=== PATIENT | female | born 1955 | race Caucasian/White ===

== ENCOUNTER 2016-07-30 15:22 | Emergency (ER) | payer OTHER ==
[~2016-07-30] VITALS: Ht 154.9 cm; Wt 60.0 kg
[~2016-07-30 15:22] MED LIST: ANAS1 PO; ASPI81 PO; ATOR40TA49 PO; CARB200T16 PO; ERGO50000 PO; GABA100C4 PO; GLUC10TA3 PO; HCTZ50 PO; KRIL300C PO; LANTUSP SQ; LISI-366 PO; METF-324 PO; NOVOLOGP2 SQ; PRED20 PO; PROT40TA PO; RANI150T PO; SERT100 PO; TRAZ150T2 PO; TRIL135C PO; WELL150T PO
[2016-07-30 15:28] VITALS: BP 138/90; PULSE 92; RESP 18; TEMP 98.8; O2SAT 95
[2016-07-30] MEDS ORDERED: SODIUM CHLOR 0.9% 1000 ML INJ 1,000 ML IV SCH (15:32)
[2016-07-30] MEDS ORDERED: SODIUM CHLORIDE 0.9% FLUSH 10 ML FLUSH IV FLUSH PRN (15:45)
[2016-07-30] MEDS ORDERED: DAPA1TAB PO (15:55)
[2016-07-30] MEDS ORDERED: PROT40TA PO (15:55)
[2016-07-30] MEDS ORDERED: TRAZ100T6 PO (15:55)
[2016-07-30] MEDS ORDERED: HYDR25TA5 PO (15:55)
[2016-07-30] MEDS ORDERED: SERT-129 PO (15:55)
[2016-07-30] MEDS ORDERED: GLIP10TA6 PO (15:55)
[2016-07-30] MEDS ORDERED: LIPI40TA PO (15:55)
[2016-07-30] MEDS ORDERED: LANTUS2P SQ (15:55)
[2016-07-30] MEDS ORDERED: METF1000 PO (15:55)
[2016-07-30] MEDS ORDERED: ASPI81CH CHEW (15:55)
[2016-07-30] MEDS ORDERED: LISI40TA PO (15:55)
[2016-07-30] MEDS ORDERED: FENO145T2 PO (15:55)
[2016-07-30] MEDS ORDERED: BUPR150T3 PO (15:55)
[2016-07-30] MEDS ORDERED: NOVOLOGP2 SQ (15:55)
[2016-07-30] MEDS ORDERED: VITA20003 PO (15:55)
[2016-07-30] MEDS ORDERED: CARB200T PO (15:55)
[2016-07-30] MEDS ORDERED: GABA100C4 PO ×2 (15:55)
[2016-07-30 16:02] LABS: BLOOD, URINE NEG (NEG); KETONE, URINE NEG (NEG); NITRITE,URINE NEG (NEG)
--- NOTE | 2016-07-30 16:06 | PD ---
HPI Chief Complaint: Abdominal Pain Time Seen by Provider: 16:06 Travel History International Travel<30 days: No Contact w/Intl Traveler<30days: No Traveled to known affect area: No History of Present Illness HPI Patient's 60-year-old female with a history of diverticulitis and diabetes presents the emergency department with a week's worth of abdominal pain. She's been seeing her primary care physician Dr. Carter initially started with right lower quadrant pain became left lower quadrant pain associated with some nausea and nonbilious nonbloody vomiting. She's also endorsing some nonbloody nonbilious stools. She also endorses a fever to low 102. She has been talking with Dr. Carter who recommended that she come up here for further evaluation emergency Department at this point. Patient states initially the pain felt like her diverticulitis but in the wrong quadrant and now feels much more likely diverticulitis but periumbilical pain is unusual for her. She denies any chest pain shortness of breath extremity pain or abdominal trauma. No previous abdominal surgeries. PFSH Past Medical History Arthritis: Yes Depression: Yes Cancer: Yes (LEFT breast) Cardiovascular Problems: No High Cholesterol: Yes Chemotherapy: No Diabetes: Yes Patient Takes Glucophage: Yes Diminished Hearing: No Diverticulitis: Yes Gastrointestinal Disorders: Yes GERD: Yes Glaucoma: No Genitourinary: Yes (URINARY URETHRA RECONSTRUCTION AGE 3) Hepatitis: No Hiatal Hernia: No Hypertension: Yes Immune Disorder: No Medical other: Yes (arthritis, GERD) Musculoskeletal: Yes (torn meniscus) Psychiatric: No Reproductive: No Respiratory: No Immunizations Current: Yes Radiation Therapy: Yes (MITCH TREATMENT) Thyroid Disease: No Triglycerides - High: Yes Tetanus Vaccination: > 5 Years Influenza Vaccination: Yes ?: Not Menopausal: Yes Past Surgical History Genitourinary Surgery: Yes (URETHRAL DIVERSION (TO VAGINA)) Gynecologic Surgery: Yes Oral Surgery: Yes Pacemaker: No Tonsillectomy: Yes Other Surgery: Yes (breast ca ) Social History Alcohol Use: No Tobacco Use: Yes (1 ppd) Substance Use: No Allergies-Medications (Allergen,Severity, Reaction): Coded Allergies: Adhesives (Unverified Allergy, Severe, RASH, 07/30/16) Sulfa (Verified Allergy, Severe, Nausea/Vomiting, 07/30/16) GI UPSET Reported Meds & Prescriptions Reported Meds & Active Scripts Active Zofran Odt (Ondansetron Odt) 4 Mg Tab 4 Mg SL Q6HR PRN Flagyl (Metronidazole) 500 Mg Tab 500 Mg PO BID 7 Days Cipro (Ciprofloxacin HCl) 500 Mg Tab 500 Mg PO BID 7 Days Bentyl (Dicyclomine HCl) 10 Mg Cap 10 Mg PO TID Reported Vitamin D (Cholecalciferol) 2,000 Unit Tab 50,000 Mg PO 1-2XWEEK Trazodone (Trazodone HCl) 100 Mg Tablet 175 Mg PO HS Sertraline (Sertraline HCl) 100 Mg Tab 150 Mg PO DAILY Protonix (Pantoprazole Sodium) 40 Mg Tab 40 Mg PO BID Novolog Inj (Insulin Aspart) 1,000 Unit/10 Ml Vial 12 Units SQ TIDAC Metformin (Metformin HCl) 1,000 Mg Tab 1,000 Mg PO BIDPC With meals Lisinopril 40 Mg Tab 40 Mg PO DAILY Lantus Inj (Insulin Glargine) 1,000 Unit/10 Ml Vial 25 Units SQ HS Hydrochlorothiazide 25 Mg Tab 25 Mg PO DAILY Glipizide 10 Mg Tab 10 Mg PO BIDAC Take 30 minutes before a meal Gabapentin 100 Mg Cap 200 Mg PO HS Gabapentin 100 Mg Cap 100 Mg PO DAILY Fenofibrate 145 Mg Tab 145 Mg PO DAILY Carbamazepine 200 Mg Tab 400 Mg PO BID Bupropion HCl ER 24 HR (Bupropion HCl) 150 Mg Tab 150 Mg PO DAILY Aspirin 81 Mg Chew 81 Mg CHEW DAILY Lipitor (Atorvastatin Calcium) 40 Mg Tab 40 Mg PO HS Farxiga (Dapagliflozin) 5 Mg Tab 5 Mg PO DAILY Review of Systems Except as stated in HPI: all other systems reviewed are Neg Physical Exam Narrative GENERAL: Well-developed well-nourished, no obvious distress. SKIN: Focused skin assessment warm/dry. HEAD: Atraumatic. Normocephalic. EYES: Pupils equal and round. No scleral icterus. No injection or drainage. ENT: No nasal bleeding or discharge. Mucous membranes pink and moist. NECK: Trachea midline. No JVD. CARDIOVASCULAR: Regular rate and rhythm. No murmur appreciated. RESPIRATORY: No accessory muscle use. Clear to auscultation. Breath sounds equal bilaterally. GASTROINTESTINAL: Abdomen soft, minimally tender in the left lower quadrant, nondistended. Hepatic and splenic margins not palpable. No rebound or percussive tenderness, normal active bowel sounds. MUSCULOSKELETAL: No obvious deformities. No clubbing. No cyanosis. No edema. NEUROLOGICAL: Awake and alert. No obvious cranial nerve deficits. Motor grossly within normal limits. Normal speech. PSYCHIATRIC: Appropriate mood and affect; insight and judgment normal. Data Data Last Documented VS Vital Signs Date Time Temp Pulse Resp B/P Pulse Ox O2 Delivery O2 Flow Rate FiO2 07/30/16 18:16 98.8 85 18 144/82 96 Room Air Orders Complete Blood Count With Diff (07/30/16 15:32) Comprehensive Metabolic Panel (07/30/16 15:32) Lipase (07/30/16 15:32) Lactic Acid (07/30/16 15:32) Urinalysis - C+S If Indicated (07/30/16 15:32) Iv Access Insert/Monitor (07/30/16 15:32) NPO (07/30/16 15:32) Sodium Chlor 0.9% 1000 Ml Inj (Ns 1000 M (07/30/16 15:32) Sodium Chloride 0.9% Flush (Ns Flush) (07/30/16 15:45) Ondansetron Inj (Zofran Inj) (07/30/16 16:15) Ct Abd/Pel W Iv Contrast(Rout) (07/30/16 ) Iohexol 350 Inj (Omnipaque 350 Inj) (07/30/16 17:32) Labs Laboratory Tests Test 07/30/16 07/30/16 15:55 16:10 Urine Color IRWIN Urine Turbidity CLEAR Urine pH 6.0 Urine Specific [place] 1.034 Urine Protein NEG mg/dL Urine Glucose (UA) 1000 OR GREATER mg/dL Urine Ketones NEG mg/dL Urine Occult Blood NEG Urine Nitrite NEG Urine Bilirubin NEG Urine Leukocyte Esterase NEG Urine RBC 0-3 /hpf Urine WBC 6-8 /hpf Urine Squamous Epithelial 6-8 /hpf Cells Microscopic Urinalysis Comment CULT NOT INDICATED White Blood Count 7.4 TH/MM3 Red Blood Count 4.72 MIL/MM3 Hemoglobin 12.9 GM/DL Hematocrit 38.4 % Mean Corpuscular Volume 81.4 FL Mean Corpuscular Hemoglobin 27.4 PG Mean Corpuscular Hemoglobin 33.6 % Concent Red Cell Distribution Width 14.5 % Platelet Count 244 TH/MM3 Mean Platelet Volume 8.0 FL Neutrophils (%) (Auto) 76.9 % Lymphocytes (%) (Auto) 15.8 % Monocytes (%) (Auto) 4.2 % Eosinophils (%) (Auto) 2.7 % Basophils (%) (Auto) 0.4 % Neutrophils # (Auto) 5.7 TH/MM3 Lymphocytes # (Auto) 1.2 TH/MM3 Monocytes # (Auto) 0.3 TH/MM3 Eosinophils # (Auto) 0.2 TH/MM3 Basophils # (Auto) 0.0 TH/MM3 CBC Comment DIFF FINAL Differential Comment Sodium Level 141 MEQ/L Potassium Level 3.9 MEQ/L Chloride Level 101 MEQ/L Carbon Dioxide Level 29.2 MEQ/L Anion Gap 11 MEQ/L Blood Urea Nitrogen 16 MG/DL Creatinine 0.63 MG/DL Estimat Glomerular Filtration 96 ML/MIN Rate Random Glucose 156 MG/DL Lactic Acid Level 0.9 mmol/L Calcium Level 9.8 MG/DL Total Bilirubin 0.5 MG/DL Aspartate Amino Transf 18 U/L (AST/SGOT) Alanine Aminotransferase 24 U/L (ALT/SGPT) Alkaline Phosphatase 53 U/L Total Protein 7.4 GM/DL Albumin 2.9 GM/DL Lipase 117 U/L MDM Medical Decision Making Medical Screen Exam Complete: Yes Emergency Medical Condition: Yes Differential Diagnosis Diverticulitis, diverticular abscess, enteritis, gastritis, gastritis, urinary tract infection, sepsis seems unlikely. Narrative Course Patient was roomed in the emergency department, she was offered pain medicine and declined, she states the pain is fairly waxing and waning. Labs on the patient are reassuring. A CAT scan was ordered, the patient states that she does have nausea and vomiting to contrast in the past, this appears to be an adverse reaction to me and not a true allergy, the patient was premedicated with Zofran and then taking a CAT scan given a contrasted CT and she tolerated very well: The CAT scan of her abdomen showed what appears to be enteritis small bowel, no focalized perforation or abscess and no free air in the abdomen. Think this would explain why her symptoms are moving around her abdomen. There is no diverticulitis. In no small bowel obstruction. The patient did have incidental finding of a lesion in her thoracic or lumbar spine which I have not been able to identify after reviewing the images. Radiologist recommended a bone scan and I think this can be performed as an outpatient. All this admission was passed on the patient. Partner for primary care physician Dr. Cortez has dropped by and seen the patient at the request of Dr. Carter, informed him that I was about to discharge the patient and he is agreeable. We' ll place the patient on additional week of Cipro and Flagyl, Bentyl as needed for spasms and nausea medicine. Discussed with her's returned ED criteria bland diet and follow-up with Dr. Carter by phone in the morning. Diagnosis Primary Impression: Enteritis Additional Impression: Bone lesion Referrals: Yakov Carter MD PhD Additional Instructions: Call Dr. Carter tomorrow, if you have high fevers, cannot tolerate oral fluids then return to ER. Stay bland on your diet. Med/Other Pt SpecificInfo: Prescription(s) given Scripts Ondansetron Odt (Zofran Odt)4 Mg Tab4 Mg SL Q6HR PRN (Nausea/Vomiting) #30 TAB Ref 0 Prov:Ho Rodriguez MD 07/30/16 Metronidazole (Flagyl)500 Mg Osh045 Mg PO BID 7 Days Ref 0 Prov:Ho Rodriguez MD 07/30/16 Ciprofloxacin (Cipro)500 Mg Ztx398 Mg PO BID 7 Days Ref 0 Prov:Ho Rodriguez MD 07/30/16 Dicyclomine (Bentyl)10 Mg Cap10 Mg PO TID #20 CAP Ref 0 Prov:Ho Rodriguez MD 07/30/16 Disposition: 01 DISCHARGE HOME Condition: Stable Ho Rodriguez MD Jul 30, 2016 16:06
[2016-07-30 16:08] LABS: GLUCOSE,URINE 1000 OR GREATER mg/dL (NEG); URINE COLOR AMBER (YELLW/STRAW)
[2016-07-30 16:09] LABS: COMMENT (UR) CULT NOT INDICATED; CULTURE IF INDICATED CULT NOT INDICATED; RBC, URINE 0-3 /hpf (0-3)
[2016-07-30] MEDS ORDERED: ONDANSETRON HCL 4 MG/2 ML VIAL IV PUSH ONE (16:15)
[2016-07-30 16:16] LABS: AUTOMATED NEUTROPHIL # 5.7 TH/MM3 (1.8-7.7); BASOPHIL % 0.4 % (0.0-2.0); EOSINOPHIL # 0.2 TH/MM3 (0-0.4); EOSINOPHIL % 2.7 % (0.0-4.0); HEMATOCRIT 38.4 % (35.0-46.0); LYMPH % 15.8 % (9.0-44.0); LYMPHOCYTE # 1.2 TH/MM3 (1.0-4.8); MEAN CELL VOLUME 81.4 FL (80.0-100.0); MEAN CORPUSCULAR HEMOGLOBIN 27.4 PG (27.0-34.0); MEAN CORPUSCULAR HGB CONC 33.6 % (32.0-36.0); MONO % 4.2 % (0.0-8.0); NEUT % 76.9 % (16.0-70.0); PLATELET COUNT 244 TH/MM3 (150-450); RED BLOOD COUNT 4.72 MIL/MM3 (4.00-5.30); RED CELL DISTRIBUTION WIDTH 14.5 % (11.6-17.2); WHITE BLOOD COUNT 7.4 TH/MM3 (4.0-11.0)
[2016-07-30 16:18] LABS: HEMO FLAGS DIFF FINAL
[2016-07-30 16:25] LABS: CHLORIDE 101 MEQ/L (98-107); POTASSIUM 3.9 MEQ/L (3.5-5.1); SODIUM (NA) 141 MEQ/L (136-145)
[2016-07-30 16:29] LABS: ANION GAP 11 MEQ/L (5-15); BICARBONATE 29.2 MEQ/L (21.0-32.0); BLOOD UREA NITROGEN 16 MG/DL (7-18)
[2016-07-30 16:31] LABS: ALT (GPT) 24 U/L (10-53)
[2016-07-30 16:32] LABS: AST (GOT) 18 U/L (15-37); GLOMERULAR FILTRATION RATE 96 ML/MIN (>89)
[2016-07-30 16:33] LABS: TOTAL BILIRUBIN ADULT 0.5 MG/DL (0.2-1.0)
[2016-07-30 16:34] LABS: ALKALINE PHOSPHATASE 53 U/L (45-117)
[2016-07-30] MEDS ORDERED: IOHEXOL 350 MG/ML 10 ML VIAL (for RAD DIAG) IV ONE (17:32)
--- NOTE | 2016-07-30 18:06 | RADHPO ---
EXAM DATE/TIME: 07/30/2016 17:15 [facility] COMPARISON: No previous studies available for comparison. INDICATIONS : Mid abdominal pain with fever for one week. IV CONTRAST: 95 cc Omnipaque 350 (iohexol) IV ORAL CONTRAST: No oral contrast ingested. RADIATION DOSE: 21.66 CTDIvol (mGy) MEDICAL HISTORY : Hypertension. Carcinoma, breast. SURGICAL HISTORY : Urinary urethra reconstruction when patient was [age] years old. ENCOUNTER: Initial ACUITY: 1 week PAIN SCALE: 3/10 LOCATION: Abdomen/pelvis TECHNIQUE: Volumetric scanning of the abdomen and pelvis was performed. Using automated exposure control and adjustment of the mA and/or kV according to patient size, radiation dose was kept as low as reasonably achievable to obtain optimal diagnostic quality images. FINDINGS: There is an area of induration and inflammatory change seen in the left mid abdomen torito rounding an area of small bowel. There are scattered colonic diverticula seen. Significant inflammatory change around the colon is not seen. The liver, spleen, pancreas, adrenal glands and kidneys appear normal. The patient does have a duoden al diverticulum measuring 4 cm. There is a coarse area of calcification seen at the uterine fundus. There is also a 1.6 cm hyperdens e mass. These are likely related to leiomyomas. No other possible pelvic mass is seen. There is deg enerative change in the lower lumbar spine. There are several areas of sclerosis seen in the lower t horacic and lumbar spine. There is some linear density seen at the left lateral base likely related to atelectasis. CONCLUSION: 1. Inflammatory change seen in the left lower quadrant surrounding small bowel. Focal processes incl uding focal enteritis need to be considered. An underlying small bowel process could also be contrib uting to this appearance. Free air is not seen. 2. Nonspecific focal sclerotic area is seen in the thoracic and lumbar spine. These are nonspecific. Metastatic lesions cannot be excluded. They could be further evaluated at some point with a bone sc an to determine if they are metabolically active or not. Seth Gonzáles MD on July 30, 2016 at 17:48 Board Certified Radiologist. This report was verified electronically.
[2016-07-30 18:16] VITALS: BP 144/82; PULSE 85; RESP 18; TEMP 98.8; O2SAT 96
[2016-07-30] MEDS ORDERED: CIPR-9 PO (18:18)
[2016-07-30] MEDS ORDERED: DICY10 PO (18:18)
[2016-07-30] MEDS ORDERED: ZOFR4TAB3 SL (18:18)
[2016-07-30] MEDS ORDERED: METR-1 PO (18:18)
== END 2016-07-30 18:36 | disposition home or self-care (01) ==
LOC: PHED 15:22
DX: K52.9 Noninfective gastroenteritis and colitis, unspecified (principal); M89.9 Disorder of bone, unspecified; R50.9 Fever, unspecified; E78.00 Pure hypercholesterolemia, unspecified; E11.9 Type 2 diabetes mellitus without complications; I10 Essential (primary) hypertension; F17.210 Nicotine dependence, cigarettes, uncomplicated; Z85.3 Personal history of malignant neoplasm of breast
CPT/HCPCS: 74177; 80053; 81001; 83605; 83690; 85025; 96361; 96374; 99285; J2405; J7030; Q9967